=== PATIENT | female | born 1945 | race Two or more races ===

== ENCOUNTER 2018-07-22 07:54 | Emergency (ER) | payer OTHER ==
[~2018-07-22] VITALS: Ht 149.9 cm; Wt 65.8 kg
[2018-07-22 08:52] LABS: Mean Corpuscular Hemoglobin 15.8 pg (28.0-32.0)
[2018-07-22 08:54] LABS: Hematocrit 24.5 % (36.0-46.0); Mean Corpuscular Hgb Conc. 27.7 g/dL (32.0-36.0); Mean Corpuscular Volume 56.9 fL (80.0-100.0); White Blood Cell 11.6 10^3/uL (4.4-10.8)
[2018-07-22 08:58] LABS: Hemoglobin 6.8 g/dL (12.2-16.2); Platelet Count (auto) 495 10^3/uL (140-450); Red Cell Distribution Width 20.8 % (11.8-14.3)
[2018-07-22 08:59] LABS: Band Neutrophils % (manual) 0; Basophils % (manual) 0 (0.0-2.0); Blast Cells 0; Eosinophils % (manual) 0 (0-7); Metamyelocytes % 0; Myelocytes % 0; Promyelocytes % 0; Reactive Lymphocytes 0
[2018-07-22 09:04] LABS: INR 1.02 (0.9-1.15); Prothrombin Time 10.9 sec (9.27-12.13)
[2018-07-22 09:09] LABS: Albumin 3.1 g/dL (3.4-5.0); BUN/Creatinine Ratio 17.5; Calcium 8.3 mg/dL (8.5-10.1); Potassium 3.9 mmol/L (3.5-5.1)
[2018-07-22 09:14] LABS: Bilirubin, Total 0.4 mg/dL (0.2-1.0); Total Protein 6.5 g/dL (6.4-8.2)
[2018-07-22 09:25] LABS: Lymphocytes % (manual) 14 (10.0-50.0); Monocytes % (manual) 6 (0-12)
[2018-07-22] MEDS ORDERED: ALBUTEROL SULF 2.5 MG/0.5ML(0.5%) NEB SOLN NEB ONE (09:45)
[2018-07-22] MEDS ORDERED: FUROSEMIDE 40 MG/4 ML VIAL IV ONE (09:45)
[2018-07-22] MEDS ORDERED: LEVOFLOXACIN 500MG 100 ML IV ONE (09:45)
[2018-07-22] MEDS ORDERED: methylPREDNISolone SOD SUCC 125 MG/2 ML VL IV ONE (09:45)
[2018-07-22 11:38] VITALS: BP 104/70
[2018-07-22 11:53] VITALS: BP 120/90
[2018-07-22 12:02] VITALS: BP 120/90
== END 2018-07-22 12:24 | disposition short-term general hospital (02) ==
LOC: EDBD 07:54 → ER 07:56
DX: J44.1 Chronic obstructive pulmonary disease with (acute) exacerbation (principal); F17.210 Nicotine dependence, cigarettes, uncomplicated
CPT/HCPCS: 36415; 36430; 36600; 71045; 80053; 82805; 83735; 83880; 84484; 85007; 85027; 85610; 85730; 86850; 86900; 86901; 86920; 87040; 94640; 94761; 96365; 96375; 99285; J1940; J1956; J2930; J7040; J7611; P9016; 93005

== ENCOUNTER 2021-02-27 05:32 | Emergency (ER) | payer OTHER ==
[~2021-02-27] VITALS: Ht 149.9 cm; Wt 108.9 kg
[2021-02-27] MEDS ORDERED: SODIUM CHLORIDE 0.9% 1,000 ML IV ONE (06:45)
[2021-02-27 07:34] LABS: Basophils # (auto) 0.1 10 ^3/uL (0-0.2); Basophils % (auto) 0.6 % (0.0-2.0); Eosinophils # (auto) 0 10 ^3/uL (0-0.8); Eosinophils % (auto) 0.2 % (0.0-7.0); Hematocrit 28.2 % (36.0-46.0); Hemoglobin 9.3 g/dL (12.2-16.2); Lymphocytes # (auto) 1.6 10 ^3/uL (0.4-5.4); Lymphocytes % (auto) 17.9 % (10.0-50.0); Mean Corpuscular Hemoglobin 31.9 pg (28.0-32.0); Mean Corpuscular Hgb Conc. 32.8 g/dL (32.0-36.0); Monocytes # (auto) 0.7 10 ^3/uL (0-1.3); Monocytes % (auto) 8.3 % (0.0-12.0); Neutrophils # (auto) 6.5 10 ^3/uL (1.6-8.6); Nucleated Red Blood Cells % 0.1 %; Red Blood Cells 2.91 10^6/uL (4.0-5.20); Red Cell Distribution Width 14.4 % (11.8-14.3); White Blood Cell 8.9 10^3/uL (4.4-10.8)
[2021-02-27 08:16] LABS: Chloride 107 mmol/L (98-107); Potassium 3.6 mmol/L (3.5-5.1); Sodium 140 mmol/L (136-145)
[2021-02-27 08:22] LABS: Alanine Aminotransferase 19 U/L (13-56); Anion Gap 9 (5-15); Aspartate Aminotransferase 21 U/L (15-37); BUN/Creatinine Ratio 21.7; Blood Urea Nitrogen 10 mg/dL (7-18); Calcium 8.3 mg/dL (8.5-10.1); Carbon Dioxide 24 mmol/L (21-32); GFR African American 170 mL/min; GFR Non-African American 141 mL/min; Glucose 71 mg/dL (74-106)
[2021-02-27 08:28] LABS: Alkaline Phosphatase 57 U/L (45-117); Bilirubin, Total 0.3 mg/dL (0.2-1.0); Total Protein 6.2 g/dL (6.4-8.2)
[2021-02-27 11:24] LABS: Urine Bacteria FEW /hpf (None Seen); Urine Blood Negative /uL (Negative); Urine Mucus FEW (None Seen); Urine Specific Gravity 1.018 (1.001-1.035); Urine WBC 15 /hpf (0 - 5)
[2021-02-27 12:00] VITALS: BP 111/75
[2021-02-27] MEDS ORDERED: cefTRIAXone 1GM/50ML D5W 50 ML IV ONE (12:15)
[2021-02-27] MEDS ORDERED: SPIRONOLACTONE 25 MG TAB PO ONE (12:15)
[2021-02-27] MEDS: FUROSEMIDE 20 MG/2 ML VIAL IV ONE ×2 (12:33→12:44)
== END 2021-02-27 14:32 | disposition home or self-care (01) ==
LOC: EDBD 05:32 → ER 05:32
DX: D64.9 Anemia, unspecified (principal); N39.0 Urinary tract infection, site not specified; J44.9 Chronic obstructive pulmonary disease, unspecified; J90 Pleural effusion, not elsewhere classified; E46 Unspecified protein-calorie malnutrition; I50.9 Heart failure, unspecified; F17.210 Nicotine dependence, cigarettes, uncomplicated; Z68.42 Body mass index [BMI] 45.0-49.9, adult; Z90.49 Acquired absence of other specified parts of digestive tract; Z20.822 Contact with and (suspected) exposure to COVID-19
CPT/HCPCS: 36415; 71046; 80053; 81001; 83735; 83880; 84443; 84484; 85025; 87426; 93005; 96361; 96365; 99285; J0696; J1940; J7030